=== PATIENT | male | born 1965 | race African-American/Black ===

== ENCOUNTER → 2017-03-15 | Outpatient (CLI) | payer OTHER ==
[~2017-03-15] VITALS: Ht 172.7 cm; Wt 127.6 kg
[~2017-03-15] MED LIST: CHLORHEXIDINE GLUCONATE 2 % 1 PACK (2 CLOTHS) TOPICAL PRN; DICL50 PO; GABA300C3 PO; HYDR-3583 PO; INSULIN HUMAN REGULAR 1,000 UNITS/10 ML VIAL SQ PRN; LACTATED RINGER'S 1000 ML IV PRN; METOPROLOL TARTRATE 25 MG TAB PO PRN; MORP1CAP7 PO; NORC7.5T PO; OXYM5TAB PO; PERC5TAB12 PO; POVIDONE IODINE 5% (ANTISEPSIS KIT) 4 APPLICATIONS EACH NARE PRN; PRAV20 PO; PRAV20TA2 PO; PROPOFOL 200 MG/20 ML AMP IV ONE; SODIUM CHLORID 0.9% 500 ML IV PRN
[2017-03-15 12:12] VITALS: BP 156/91; PULSE 69; RESP 20; TEMP 98.5; O2SAT 99
[2017-03-15 13:34] VITALS: TEMP 97.7
[2017-03-15 13:55] VITALS: BP 150/83; PULSE 65; RESP 18; O2SAT 99
--- NOTE | 2017-03-16 13:59 | EKG ---
Date Performed: 03/15/2017 Time Performed: 12:37:11 PTAGE: 52 years EKG: Sinus rhythm Normal EKG PREVIOUS TRACING : 04/19/2016 10.11 Compared to prior tracing no significant change DOCTOR: Anders Pearson Interpretating Date/Time 03/16/2017 13:57:18
--- NOTE | 2017-03-17 06:44 | MR ---
cc: ASHVIN MCGILL DATE 03/15/2017 DATE OF 1965 INDICATION FOR THE PROCEDURE 1. Evaluation of chronic gastroesophageal reflux disease 2. Screening colonoscopy average risk. Photographs and biopsies taken. PREMEDICATION Administered by anesthesiology. MONITORING Accomplished with pulse oximeter, EKG, and blood pressure monitor. PROCEDURE NOTE After informed consent was obtained and the procedure risks, and benefits were explained including the risks of bleeding, sepsis, perforation, and the risk of anesthesia, the patient was placed in the left lateral position. The video endoscope was inserted in the esophagus under direct visualization. At the EG junction, there were mild erosive changes consistent with grade 1 esophagitis. Otherwise, the esophagus was unremarkable. A very small hiatal hernia was traversed. The stomach was entered. The gastric mucosa was visualized and in retroflexed view, the cardia and fundus were normal. The gastric body and antrum were normal. The pylorus was normal dimension as well. The first, second, and third portions of the duodenum were unremarkable. The scope was gradually withdrawn. The patient was repositioned and colonoscopy was performed. The video colonoscope was inserted in the rectum, passed to the cecum in the usual fashion easily. There was some residual soft stool in the cecum and ascending colon. This was suctioned out and lavaged as best possible. The patient did have a prominent ileocecal valve. In the cecum, a 5 mm polyp was found and biopsied off and removed in its entirety. The scope was then gradually withdrawn. The ascending colon, transverse colon, descending colon, and sigmoid were all within normal limits without active inflammation or further space-occupying lesions. The scope was retroflexed, he did have small grade 1 internal hemorrhoids noted. The patient tolerated the procedures well. IMPRESSION 1. Grade 1 distal esophagitis. 2. Small hiatal hernia. 3. Cecal polyp removed by biopsy technique. 4. Grade 1 internal hemorrhoids. PLAN Recommend PPI antireflux maneuvers, weight reduction. I have discussed this with the patient. He will follow up clinically as an outpatient. We will follow up the biopsies of the polyp removed. If adenomatous, would recommend repeat colonoscopy in five years. MD KIARA Veronica/MONTY /1:47 PM /6:37 AM
== END ==
LOC: HEND 10:27
PROVIDERS: ATTEND Internal Medicine Gastroenterology
DX: K20.8 Other esophagitis (principal); K44.9 Diaphragmatic hernia without obstruction or gangrene; Z12.11 Encounter for screening for malignant neoplasm of colon; D12.0 Benign neoplasm of cecum; K64.8 Other hemorrhoids; Z01.810 Encounter for preprocedural cardiovascular examination
CPT/HCPCS: 88305; 93005